=== PATIENT | female | born 2000 ===

== ENCOUNTER → 2023-05-20 | Outpatient (CLI) | payer MEDICAID ==
[2023-05-20 11:59] LABS: Basophils # (auto) 0 10 ^3/uL (0-0.2); Eosinophils # (auto) 0.1 10 ^3/uL (0-0.8); Lymphocytes # (auto) 1.8 10 ^3/uL (0.4-5.4); Lymphocytes % (auto) 18.2 % (10.0-50.0); Monocytes # (auto) 0.6 10 ^3/uL (0-1.3); Neutrophils # (auto) 7.4 10 ^3/uL (1.6-8.6); Red Cell Distribution Width 13.8 % (11.8-14.3)
[2023-05-20 12:00] LABS: Basophils % (auto) 0.3 % (0.0-2.0); Eosinophils % (auto) 0.8 % (0.0-7.0); Hematocrit 35.3 % (36.0-46.0); Hemoglobin 11.9 g/dL (12.2-16.2); Mean Corpuscular Hemoglobin 27.6 pg (28.0-32.0); Mean Corpuscular Hgb Conc. 33.7 g/dL (32.0-36.0); Monocytes % (auto) 5.8 % (0.0-12.0); Neutrophils % (auto) 74.9 % (37.0-80.0); White Blood Cell 9.8 10^3/uL (4.4-10.8)
[2023-05-21 08:06] LABS: RPR Non Reactive (Non Reactive)
== END | disposition home or self-care (01) ==
LOC: LAB 11:43
PROVIDERS: ATTEND Obstetrics & Gynecology
DX: Z34.80 Encounter for supervision of other normal pregnancy, unspecified trimester (principal); Z3A.00 Weeks of gestation of pregnancy not specified
CPT/HCPCS: 36415; 85025; 86592

== ENCOUNTER 2023-05-21 19:45 | Inpatient (IN) | payer MEDICAID ==
[~2023-05-21] VITALS: Ht 157.5 cm; Wt 87.1 kg
[2023-05-21] MEDS ORDERED: MORPHINE SULFATE INJ 2 MG/ml SYRG IV PRN (20:00)
[2023-05-21] MEDS ORDERED: BUTORPHANOL TARTRATE 2 MG/1 ML VIAL IV PRN ×2 (20:00)
[2023-05-21] MEDS ORDERED: PROMETHAZINE HCL 25 MG/ML 1ML IV PRN (20:00)
[2023-05-21] MEDS ORDERED: DERMOPLAST 60ML BOTTLE TOP PRN (20:00)
[2023-05-21] MEDS ORDERED: WITCH HAZEL-GLYCERIN PAD TOP PRN (20:00)
[2023-05-21] MEDS ORDERED: NITROGLYCERIN 0.4 MG SL TAB SL PRN (20:00)
[2023-05-21] MEDS ORDERED: LIDOCAINE 2%HCL (LOCAL ANESTH.) INJ 20ML MDV IJ PRN (20:00)
[2023-05-21] MEDS ORDERED: PHISODERM TOP SOLN 240ML BTL TOP PRN (20:00)
[2023-05-21] MEDS ORDERED: PROMETHAZINE HCL 25 MG/ML 1ML IM PRN (21:00)
[2023-05-21] MEDS ORDERED: MINERAL OIL TOPICAL 10ml TOP PRN (21:00)
[2023-05-21] MEDS ORDERED: fentaNYL CITRATE 100 MCG/2 ML VL IV PRN (21:00)
[2023-05-21] MEDS ORDERED: diphenhdrAMINE HCL 50 MG/1 ML VL IV PRN (21:00)
[2023-05-21] MEDS ORDERED: ONDANSETRON HCL 4 MG/2 ML VIAL IV PRN (21:00)
[2023-05-21] MEDS ORDERED: CARBOPROST TROMETHAMINE 250 MCG/1ML VIAL IM PRN (21:00)
[2023-05-21] MEDS ORDERED: miSOPROStol 100 mcg TAB SL PRN (21:00)
[2023-05-21] MEDS ORDERED: ACETAMINOPHEN 325 MG TAB PO PRN (21:00)
[2023-05-21] MEDS ORDERED: METHYLERGONOVINE MALEATE 0.2 MG/ML AMP IM PRN (21:00)
[2023-05-21] MEDS ORDERED: TRANEXAMIC ACID 1,000 MG in SODIUM CHL 0.9% 100 ML IV PRN (21:00)
[2023-05-21 21:10] LABS: Basophils # (auto) 0 10 ^3/uL (0-0.2); Basophils % (auto) 0.2 % (0.0-2.0); Eosinophils # (auto) 0.1 10 ^3/uL (0-0.8); Hematocrit 34.2 % (36.0-46.0)
[2023-05-21 21:12] LABS: Eosinophils % (auto) 1.1 % (0.0-7.0); Hemoglobin 11.3 g/dL (12.2-16.2); Lymphocytes # (auto) 2.2 10 ^3/uL (0.4-5.4); Lymphocytes % (auto) 24.2 % (10.0-50.0); Mean Corpuscular Hgb Conc. 33.1 g/dL (32.0-36.0); Mean Corpuscular Volume 81.5 fL (80.0-100.0); Monocytes # (auto) 0.6 10 ^3/uL (0-1.3); Monocytes % (auto) 6.1 % (0.0-12.0); Neutrophils # (auto) 6.3 10 ^3/uL (1.6-8.6); Neutrophils % (auto) 68.4 % (37.0-80.0); Nucleated Red Blood Cells % 0.1 %; Red Blood Cells 4.19 10^6/uL (4.0-5.20); Red Cell Distribution Width 13.5 % (11.8-14.3); White Blood Cell 9.2 10^3/uL (4.4-10.8)
[2023-05-21] MEDS ORDERED: ACETAMINOPHEN 500 MG TAB PO PRN (21:15)
[2023-05-21 21:28] LABS: Alanine Aminotransferase 10 U/L (7-40); Alkaline Phosphatase 157 U/L (46-116); Anion Gap 8 (5-15); Aspartate Aminotransferase 17 U/L (13-40); Bilirubin, Total 0.3 mg/dL (0.2-1.0); Carbon Dioxide 22 mmol/L (20-30); Chloride 107 mmol/L (98-107); Glucose 100 mg/dL (74-106); Potassium 3.6 mmol/L (3.5-5.1); Sodium 137 mmol/L (136-145); Total Protein 6.5 g/dL (5.7-8.2)
[2023-05-21 21:35] LABS: BUN/Creatinine Ratio 9.3 (10.0-20.0); Blood Urea Nitrogen < 5 mg/dL (9-23)
[2023-05-21 21:42] LABS: INR 1.05 (0.9-1.15); Partial Thromboplastin Time 27.4 SEC (24.5-34.5)
[2023-05-21] MEDS ORDERED: ePHEDrine SULFATE 50 MG/ML AMP IV ONE (22:00)
[2023-05-21] MEDS ORDERED: NALOXONE HCL 0.4 MG/ML VIAL IV ONE (22:00)
[2023-05-21] MEDS ORDERED: ROPIVACAINE HCL 200 ML EPI SCH (22:00)
[2023-05-21] MEDS ORDERED: LACT. RINGERS/OXYTOCIN 20UNITS 1,000 ML IV SCH (22:15)
[2023-05-21] MEDS ORDERED: ceFAZolin 2 GM/D5W100ml 100 ML IV ONE (22:15)
[2023-05-21] MEDS ORDERED: TERBUTALINE SULFATE 1 MG/ML 1ML VIAL SC PRN (22:15)
[2023-05-21] MEDS ORDERED: ROPIVACAINE HCL 100 ML ONE (22:37)
[2023-05-21] MEDS: LACTATED RINGER'S 1,000 ML IV SCH (22:46)
[2023-05-22] MEDS ORDERED: DIPHENOXYLATE W/ATROPINE 2.5 MG TAB PO SCH
[2023-05-22] MEDS ORDERED: METHYLERGONOVINE MALEATE 0.2 MG/ML AMP IM PRN (01:00)
[2023-05-22 02:02] LABS: Amphetamine Screen, Urine Neg (NEGATIVE); Barbiturate Scree,Urine Neg (NEGATIVE); Benzodiazephine Screen, Urine Neg (NEGATIVE); Cannabinoid Screen, Urine Neg (NEGATIVE); Cocaine Screen, Urine Neg (NEGATIVE); Opiate Scree,Urine Neg (NEGATIVE); Phencyclidine Screen, Urine Neg (NEGATIVE)
[2023-05-22 02:09] LABS: Urine Bacteria NONE SEEN /hpf (None Seen); Urine Blood Negative /uL (Negative); Urine Clarity Clear (Clear); Urine Color Yellow (Yellow); Urine Mucus FEW (None Seen); Urine Protein, UAD TRACE (Negative); Urine Specific Gravity 1.022 (1.001-1.035); Urine Urobilinogen Normal (Negative); Urine WBC 1 /hpf (0 - 5); Urine pH 6.5 (5.0-8.0)
[2023-05-22] MEDS: LACTATED RINGER'S 1,000 ML IV SCH (05:42)
[2023-05-22] MEDS ORDERED: ceFAZolin 1GM/50ML 50 ML IV SCH (06:00)
[2023-05-22] MEDS ORDERED: ROPIVACAINE HCL 100 ML ONE (07:12)
[2023-05-22] MEDS ORDERED: LACT. RINGERS/OXYTOCIN 20UNITS 500 ML IV ONE ×4 (11:00→11:30)
[2023-05-22] MEDS ORDERED: ACETAMINOPHEN 325 MG TAB PO PRN (11:00)
[2023-05-22] MEDS ORDERED: ONDANSETRON ODT 4 MG TAB PO PRN (11:00)
[2023-05-22] MEDS ORDERED: IBUPROFEN 800 MG TAB PO SCH (12:00)
[2023-05-22 15:00] VITALS: BP 108/50; PULSE 93; RESP 17; TEMP 98.4; O2SAT 97
[2023-05-22] MEDS: IBUPROFEN 600 MG TAB PO PRN (18:46)
[2023-05-22 19:15] VITALS: BP 103/43; PULSE 65; RESP 16; TEMP 98.1; O2SAT 98
[2023-05-22] MEDS ORDERED: DOCUSATE SOD 100 MG CAP PO SCH (22:00)
[2023-05-23] MEDS: IBUPROFEN 600 MG TAB PO PRN (02:49)
[2023-05-23 03:08] VITALS: BP 85/49; PULSE 61; RESP 16; TEMP 98
[2023-05-23] MEDS ORDERED: IBU600T PO (03:47)
[2023-05-23 05:07] LABS: RPR Non Reactive (Non Reactive)
[2023-05-23 07:06] VITALS: BP 90/63; PULSE 65; RESP 16; TEMP 97.5; O2SAT 100
[2023-05-23 11:30] VITALS: BP 101/59; PULSE 70; RESP 18; TEMP 98; O2SAT 100
[2023-05-23] MEDS ORDERED: TETANUS-DIPTH-ACEL PERTUSSIS 0.5ML SYR Tdap IM ONE (12:15)
[2023-05-25 20:06] LABS: Treponema pallidum Ab (FTA-Ab) Non Reactive (Non Reactive)
== END 2023-05-23 14:16 | disposition home or self-care (01) | DRG 560 ==
LOC: LDRP 19:45
PROVIDERS: ADMIT Obstetrics & Gynecology; ATTEND Obstetrics & Gynecology
PROC: 10E0XZZ Delivery of Products of Conception, External Approach (ICD-10-PCS; principal; 2023-05-22)
PROC: 3E0R3BZ Introduction of Anesthetic Agent into Spinal Canal, Percutaneous Approach (ICD-10-PCS; 2023-05-22)
PROC: 00HU33Z Insertion of Infusion Device into Spinal Canal, Percutaneous Approach (ICD-10-PCS; 2023-05-22)
DX: O42.913 Preterm premature rupture of membranes, unspecified as to length of time between rupture and onset of labor, third trimester (principal); Z37.0 Single live birth; J45.909 Unspecified asthma, uncomplicated; O99.52 Diseases of the respiratory system complicating childbirth; Z3A.36 36 weeks gestation of pregnancy; Z88.0 Allergy status to penicillin
CPT/HCPCS: 36415; 59025; 59409; 62282; 80053; 80307; 81001; 82948; 85025; 85610; 85730; 86592; 86850; 86900; 86901; 90715; 94760; 96360; 96361; 96365; 96366; 96374; G0378; J0690; J2405; J2590

== ENCOUNTER 2023-12-01 20:09 | Emergency (ER) | payer MEDICAID ==
[~2023-12-01] VITALS: Ht 157.5 cm; Wt 90.0 kg
[~2023-12-01 20:09] MED LIST: IBU600T PO
[2023-12-01 21:13] LABS: Urine Bacteria None Seen /hpf (None Seen)
[2023-12-01 21:50] LABS: Urine Blood 3+ /uL (Negative); Urine Clarity Turbid (Clear); Urine Color Light-Brown (Yellow); Urine Protein, UAD TRACE (Negative); Urine Specific Gravity 1.027 (1.001-1.035); Urine Urobilinogen Normal (Negative); Urine WBC 25 /hpf (0 - 5); Urine pH 7.5 (5.0-9.0)
[2023-12-01 21:54] LABS: Basophils # (auto) 0 10 ^3/uL (0-0.2); Basophils % (auto) 0.4 % (0.0-2.0); Eosinophils # (auto) 0.3 10 ^3/uL (0-0.8); Eosinophils % (auto) 3.3 % (0.0-7.0); Hematocrit 37.7 % (36.0-46.0); Hemoglobin 12.5 g/dL (12.2-16.2); Lymphocytes # (auto) 3.3 10 ^3/uL (0.4-5.4); Lymphocytes % (auto) 32.5 % (10.0-50.0); Mean Corpuscular Hemoglobin 28.1 pg (28.0-32.0); Mean Corpuscular Hgb Conc. 33.2 g/dL (32.0-36.0); Mean Corpuscular Volume 84.7 fL (80.0-100.0); Monocytes # (auto) 0.7 10 ^3/uL (0-1.3); Monocytes % (auto) 6.7 % (0.0-12.0); Neutrophils # (auto) 5.8 10 ^3/uL (1.6-8.6); Neutrophils % (auto) 57.1 % (37.0-80.0); Red Blood Cells 4.45 10^6/uL (4.0-5.20); Red Cell Distribution Width 14.6 % (11.8-14.3); White Blood Cell 10.1 10^3/uL (4.4-10.8)
[2023-12-01 22:30] LABS: Chloride 108 mmol/L (98-107); Potassium 4.3 mmol/L (3.5-5.1); Sodium 141 mmol/L (136-145)
[2023-12-01 22:32] LABS: Anion Gap 5 (5-15); Carbon Dioxide 28 mmol/L (20-30)
[2023-12-01 22:37] LABS: Blood Urea Nitrogen 14 mg/dL (9-23); Glucose 85 mg/dL (74-106)
[2023-12-01 22:55] LABS: BUN/Creatinine Ratio 26.4 (10.0-20.0)
[2023-12-02] MEDS ORDERED: MEDR10TA9 PO (01:17)
[2023-12-02 01:29] VITALS: BP 131/84; PULSE 70; RESP 14; TEMP 98.4; O2SAT 100
== END 2023-12-02 01:19 | disposition home or self-care (01) ==
LOC: ER 20:09
DX: N83.291 Other ovarian cyst, right side (principal); R10.2 Pelvic and perineal pain; J45.909 Unspecified asthma, uncomplicated; Z88.1 Allergy status to other antibiotic agents
CPT/HCPCS: 36415; 76856; 80048; 81001; 84702; 85025; 86850; 86900; 86901